=== PATIENT | male | born 1945 | race Caucasian/White ===

== ENCOUNTER → 2019-05-13 10:09 | Outpatient (CLI) | payer MEDICARE, BC | END | disposition home or self-care (01) | LOC: D.RAD 10:09 | PROVIDERS: ATTEND Family Medicine | DX: K59.00 Constipation, unspecified (principal) ==

== ENCOUNTER → 2019-06-30 08:32 | Outpatient (CLI) | payer MEDICARE, BC | END | disposition home or self-care (01) | LOC: D.RAD 08:32 | PROVIDERS: ATTEND Family Medicine | DX: R14.0 Abdominal distension (gaseous) (principal) ==

== ENCOUNTER 2021-02-28 14:06 | Observation (INO) | payer MEDICARE, BC ==
[~2021-02-28] VITALS: Ht 177.8 cm; Wt 75.2 kg
--- NOTE | ~2021-02-28 | OP ---
PATIENT NAME: CHRIS NORIEGA MEDICAL RECORD: [id number] :49 LOCATION:D. D.2123 ADMISSION DATE:02/28/21 SURGEON: CELI OLGUIN MD DATE OF OPERATION: 03/01/2021 PROCEDURE: Left heart catheterization, selective coronary angiography, right femoral artery approach. CATHETERS: A 5-Macedonian sheath, 5/4 left and right Argelia, 5/4 pig. The procedure was well tolerated. The patient was returned to the rose. Sheath removed. ExoSeal device was placed. FINDINGS: Left ventriculography in 30-degree MARTIN view normal wall motion and normal systolic function. CORONARY ANATOMY: LEFT MAIN: Left main free of disease. LAD: Free of disease in the diagonal system. CIRCUMFLEX: Codominant system, free of disease. RIGHT CORONARY ARTERY: Codominant system, free of disease. IMPRESSION: Normal left ventricular systolic function, normal coronary anatomy. TRANSINT:[id number] Voice Confirmation ID: [id number] DOCUMENT ID: [id number] CELI OLGUIN MD CC: [id number] DICTATION DATE: 03/01/21 1223 FARMER DIVERSIFIED CROPS: 03/01/21 221 DIS IN 03/01/21 [facility] [address] [id number]
--- NOTE | ~2021-02-28 | HEMODYNAMI ---
PATIENT:CHRIS NORIEGA MEDICAL RECORD: [id number] : 49 LOCATION:[address] [id number] ADMISSION DATE: 02/28/21 Generatedon:112:19 Patient name: CHRIS NORIEGA Patient #: [id number] SSN: : Date of study: 03/01/2021 Page: Of Hemodynamic Procedure Report Patient Data Patient Demographics Procedure consent was obtained First Name: CHRIS Gender: Male Last Name: HARI : 1945 [facility] Initial: ALEXIS Age: 75 year(s) Patient #: [id number] Race: Unknown Additional ID: [id number] Contact details Address: [address] [place] [address] State: [place] City: [place] Zip code: [address] Past Medical History Allergies Allergen Reaction Date Comments Reported Penicillins 03/01/2021 Admission Admission Data Admission Date: 02/28/2021 Admission Time: 14:18 Room #: [facility] Height (in.): 70 BSA: 1.93 (m2) Height (cm.): 177.8 BMI: 23.72 (kg/m2) Weight (lbs.): 165.35 Weight (kg.): 75 Current Diagnosis Diagnosis Description Stable angina Lab Results Lab Result Date: 03/01/2021 Lab Result Time: 0:00 Biochemistry Name Units Result Min Max BUN mg/dl 10 --(-*--)-- 7 18 Creatinine mg/dl 1 --(--*-)-- 0.6 1.3 CBC Name Units Result Min Max Hemoglobin g/dl 13 -*(----)-- 13.5 17.5 Procedure Procedure Types Cath Procedure Diagnostic Procedure [facility] w/Coronaries Procedure Description Procedure Date Procedure Date: 03/01/2021 Procedure Start Time: 12:06 Procedure End Time: 12:16 Procedure Staff Name Function Jl Vance MD Performing Physician Chris Stewart RT Monitor Natividad Almodovar RT Scrub James Hunter RN Nurse Procedure Data Cath Procedure Fluoroscopy Diagnostic fluoroscopy Total fluoroscopy Time: 1.6 time: 1.6 min min Diagnostic fluoroscopy Total fluoroscopy dose: 267 dose: 267 mGy mGy Contrast Material Contrast Material Type Amount (ml) Isovue 370 57 Entry Location Entry Primary Successful Side Size Upsize Upsize Entry Closure Succes sful Closure Location (Fr) 1 (Fr) 2 (Fr) Remarks Device Remarks Femoral Right 5 Fr Exoseal artery Estimated blood loss: 5 ml Diagnostic catheters Device Type Used For End Catheter Placement MULTIPACK JL 4.0 5Fr Left Coronary catheter Angiography MULTIPACK 3DRC 5Fr Right Coronary catheter Angiography DIAGNOSTIC JL 5 5Fr Left Coronary catheter ([id number]) Angiography MULTIPACK Pigtail 5 Fr LV Angiography catheter Procedure Complications No complications Procedure Medications Medication Administration Route Dosage 0.9% NaCl I.V. 100 ml/hr Oxygen etCO2 Nasal cannula 2 l/min Heparin Flush Bag added to field 2 bags (1000units/500ml NS) Lidocaine 2% added to field 20 Versed I.V. 1 mg Fentanyl I.V. 50 mcg Versed I.V. 1 mg Fentanyl I.V. 50 mcg Oxygen 15 l/min Hemodynamics Rest BSA: 1.93 (m2) HGB: 13 (g/dl) O2 Consumption: Estimated: 215.3 (ml/min) O2 Consu mption indexed: Estimated:111.55 (ml/min/m) Heart Rate: 60 (bpm) Gradients Valve Time Site Site Mean SEP/DFP Peak To Heart Use 1 2 (mmHg) (sec/min) Peak Rate (mmHg) (bpm) Aortic 12:13 LV AO 68 Snapshots Pre Cath Intra NCS Post Cath Vital Signs Time Heart Resp SPO2 etCO2 NIBP (mmHg) Rhythm Pain Sedation Rate (ipm) (%) (mmHg) Status Level (bpm) 12:01:25 62 11 100 38.9 158/88(100) NSR 0 (11) 10(A) , No pain 12:05:43 62 18 98 32.9 145/82(103) NSR 0 (11) 10(A) , No pain 12:10:02 61 14 88 0 134/81(111) NSR 0 (11) 9(A) , No pain 12:14:14 68 21 99 8.2 149/86(113) NSR 0 (11) 9(A) , No pain Medications Time Medication Route Dose Verified Delivered Reason Notes Eff ectiveness by by 11:48:30 0.9% NaCl I.V. 100 Jl James used for ml/hr St Gama Hunter RN procedure 11:48:39 Oxygen etCO2 2 Jl James used for Nasal l/min St Gama Hunter RN procedure cannula 11:48:47 Heparin Flush added 2 Jl Jl used for Bag to bags [facility] procedure (1000units/500ml field MD WALKER NS) 11:48:55 Lidocaine 2% added 20ml Jl Jl for local to vial [facility] anesthetic field MD WALKER 12:04:32 Versed I.V. 1 [address] for [facility] Gama Hunter RN sedation 12:04:40 Fentanyl I.V. 50 Jl James for mcg [facility] Gama Hunter RN sedation 12:07:36 Versed I.V. 1 [address] James for [facility] Gama Hunter RN sedation 12:07:39 Fentanyl I.V. 50 Jl James for mcg [facility] Gama Hunter RN sedation 12:12:13 Oxygen simple 15 Jl James used for mask l/min St Gama Hunter RN procedure Procedure Log Time Note 11:35:57 Informed consent obtained and on chart 11:36:19 Procedure Status Urgent Heart Cath (IP). 11:36:22 Chris Suit RT(R) sent for patient. Start room use. 11:42:13 Time tracking: Regular hours (M-F 7:00 - 5:00) 11:42:16 Plan of Care:Hemodynamics will remain stable., Cardiac rhythm will remain stable., Comfort level will be maintained., Respiratory function will remain adequate., Patient/ family verbilizes understanding of procedure., Procedure tolerated without complication., Recovers from procedure without complications.. 11:48:30 0.9% NaCl 100 ml/hr I.V. was administered by James Hunter RN; used for procedure; Verbal order read back and verified. 11:48:39 Oxygen 2 l/min etCO2 Nasal cannula was administered by James Hunter RN; used for procedure; Verbal order read back and verified. 11:48:47 Heparin Flush Bag (1000units/500ml NS) 2 bags added to field was administered by Jl Vance MD; used for procedure; Verbal order read back and verified. 11:48:55 Lidocaine 2% 20ml vial added to field was administered by Jl Vance MD; for local anesthetic; Verbal order read back and verified. 11:53:53 Patient received from PCU to CCL 1 Alert and oriented. Tansferred to table in Supine position. 11:53:55 Warm blankets applied, and aisha hugger turned on for patient comfort. 11:53:55 Correct patient and procedure confirmed by team. 11:53:56 ECG and BP/O2 sat monitors applied to patient. 12:00:13 Vital chart was started 12:00:17 Baseline sample Acquired. 12:00:18 Baseline sample Acquired. 12:00:21 Rhythm: sinus rhythm 12:00:22 Full Disclosure recording started 12:00:32 H&P Date Dictated: 03/01/2021 Within 30 days and on chart.. 12:00:33 Pre-procedure instructions explained to patient. 12:00:34 Pre-op teaching completed and patient verbalized understanding. 12:00:40 Family in waiting room. 12:00:44 Patient NPO since Midnight. 12:00:55 Patient allergic to Penicillins 12:02:10 Is the patient allergic to Iodine/contrast media? No. 12:02:16 Is patient on blood thinner?No 12:02:29 Patient diabetic? No. 12:02:33 Previous problem with sedation/anesthesia? No ? 12:02:35 Snore? Yes 12:02:36 Sleep apnea? Yes 12:02:38 Deviated septum? No 12:02:40 Opens mouth fully? Yes 12:02:42 Sticks out tongue? Yes 12:02:44 Airway obstruction? No ? 12:02:47 Dentures? No ? 12:02:52 Pre procedure: right dorsailis pedis pulse 1+ Palpable, but thready & weak; easily obliterated 12:02:55 Patient pain scale 0/10 ?. 12:03:03 IV patent on arrival in right hand with 0.9% NaCl at [facility] 12:04:02 Lab Result : BUN 10 mg/dl 12:04:02 Lab Result : Creatinine 1 mg/dl 12:04:02 Lab Result : Hemoglobin 13 g/dl 12:04:06 Lab results completed and on chart. 12:04:11 Right groin area was prepped with chlora-prep and draped in sterile fashion 12:04:12 Alarms reviewed by R. N. 12:04:12 Sharps counted by scrub and verified by R.N. 12:04:14 Physician arrived 12:04:14 --------ALL STOP TIME OUT------ 12:04:15 Final Timeout: patient, procedure, and site verified with staff and physician. All members of the team are in agreement. 12:04:17 Right groin site verified by team. 12:04:24 Fire Safety Assessment: A--An alcohol-based skin anteseptic being used preoperatively., B--The operative or invasive procedure is being performed above the xiphoid process or in the oropharynx., C--Open oxygen or nitrous oxide is being used., D--An ESU, laser, or fiber-optic light is being used., E--There are other possible contributors. 12:04:28 Physical assessment completed. ASA score P 2 - A patient with mild systemic disease as per Jl Vance MD. 12:04:32 Versed 1 mg I.V. was administered by James Hunter RN; for sedation; Verbal order read back and verified. 12:04:40 Fentanyl 50 mcg I.V. was administered by James Hunter RN; for sedation; Verbal order read back and verified. 12:04:54 2) 60-89 Mildly reduced kidney function, and other findings (as for stage 1) point to kidney disease. 12:05:13 Maximum allowable contrast dose (3.7 X eGFR X 0.75)216 ml. 12:05:18 Sedation plan: IV Moderate Sedation Medication:Versed, Fentanyl 12:05:25 Use device set Femoral Dx 12:05:28 ACIST Syringe (93165) opened to sterile field. 12:05:28 Bag Decanter (2002S) opened to sterile field. 12:05:29 Medline Cath Pack ([id number]) opened to sterile field. 12:05:33 ACIST Hand Control (90787) opened to sterile field. 12:05:34 ACIST Manifold (89978) opened to sterile field. 12:05:35 DIAGNOSTIC Multipack 5Fr catheter set ([id number]) opened to sterile field. 12:05:35 Tegaderm 4 x 4 (1626W) opened to sterile field. 12:05:38 SHEATH 5FR [place] (FZD459) opened to sterile field. 12:05:39 EMERALD Guide Wire (368-496) opened to sterile field. 12:05:45 Procedure started. 12:06:12 Local anesthetic to right femoral artery with Lidocaine 2% by Jl Vance MD.INITIAL ACCESS ONLY 12:06:22 A 5 Fr sheath was inserted into the Right Femoral artery 12:07:28 Zero performed for pressure channel P1 12:07:36 Versed 1 mg I.V. was administered by James Hunter RN; for sedation; Verbal order read back and verified. 12:07:39 Fentanyl 50 mcg I.V. was administered by James Hunter RN; for sedation; Verbal order read back and verified. 12:07:53 Patient Height : 70 inches 12:08:04 Patient Weight : 165.35 lbs 12:08:09 Current Diagnosis : Stable angina 12:08:32 A MULTIPACK JL 4.0 5Fr catheter was advanced over the wire and used for Left Coronary Angiography. 12:08:37 LCA angiography performed. 12:08:42 Catheter removed. 12:09:13 A MULTIPACK 3DRC 5Fr catheter was advanced over the wire and used for Right Coronary Angiography. 12:09:20 RCA angiography performed. 12:09:28 Catheter removed. 12:11:23 A DIAGNOSTIC JL 5 5Fr catheter ([id number]) was advanced over the wire and used for Left Coronary Angiography. 12:11:31 LCA angiography performed. 12:11:34 Catheter removed. 12:11:49 A MULTIPACK Pigtail 5 Fr catheter was advanced over the wire and used for LV Angiography. 12:11:55 LV gram done using MARTIN 12:11:56 LV hemodynamics recorded. 12:12:01 Injector settings: Ml/sec: 10, Volume: 20, 12:12:13 Oxygen 15 l/min simple mask was administered by James Hunter RN; used for procedure; Verbal order read back and verified. 12:13:36 EF : 55 % 12:13:59 EXOSEAL 5Fr (EX500) opened to sterile field. 12:14:02 Catheter removed. 12:14:21 Sheath removed intact; hemostasis achieved with Exoseal to the Right Femoral artery. 12:14:25 Procedure ended.(Physican Out) 12:15:02 Fluoroscopy time 01.60 minutes. 12:15:13 Flurop Dose total: 267 12:15:13 Fluoroscopy dose: 267 mGy 12:15:22 Dose Area Product 17005 mGy/cm. 12:15:33 Contrast amount:Isovue 370 57ml. 12:15:35 Sharps counted by scrub and verified by R.N. 12:15:38 Insertion/operative site no bleeding no hematoma. 12:15:41 Post-op/insertion site Right Femoral artery dressed using a 4 x 4 and Tegaderm. 12:15:44 Post right femoral artery:stable 12:15:46 Post Procedure Pulses reassessed and unchanged 12:15:49 Post procedure: right dorsailis pedis pulse 1+ Palpable, but thready & weak; easily obliterated. 12:15:51 Post procedure rhythm: sinus rhythm 12:16:13 Estimated blood loss: 5 ml 12:16:15 Post procedure instruction explained to patient.Patient verbalizes understanding. 12:16:19 Procedure and supply charges have been captured, reviewed, submitted and are correct. 12:16:40 Procedure Complication : No complications 12:16:42 Vital chart was stopped 12:16:[address] [facility] Findings: mild to moderate CAD (<70%) 12:16:48 Operative report dictated upon procedure completion. 12:16:49 See physician's report for complete and final results. 12:16:51 Report given to PCU. 12:16:54 Patient transfered to PCU with Stretcher. 12:16:56 Procedure ended. 12:16:56 Full Disclosure recording stopped 12:16:59 End room use (Document Last) 12:17:22 End room use (Document Last) 12:17:53 End room use (Document Last) Device Usage Item Name Manufacture Quantity Catalog Hospital Part Current Minimal L ot# / Number Charge Number Stock Stock Serial# Code ACIST Acist 1 41532 [id number] 179751 [id number] 20 Syringe Medical (61374) Systems Inc Bag Microtek 1 048269 69918 350825 5 Decanter Medical Inc. () Medline Medline 1 [id number] 939061 98159 442415 5 Cath Pack ([id number]) ACIST Hand Acist 1 51540 904782 155182 418482 5 Control Medical (24572) Systems Inc ACIST Acist 1 22658 906558 786296 426054 5 AGNITiO (06169) Systems Inc DIAGNOSTIC Cardinal 1 NA3795 432294 76322 181960 30 Multipack Health 5Fr catheter set (JW0209) Tegaderm 4 3M 1 1626W 241548 846225 915039 5 x 4 (1626W) SHEATH 5FR Terumo 1 KFS447 474664 007745 044347 5 [place] (KDC383) EMERALD Cardinal 1 502-455 695475 664649 204034 5 Guide Wire Health (502-455) MULTIPACK Cardinal 1 625209 5 JL 4.0 5Fr Health catheter MULTIPACK Cardinal 1 600310 5 3DRC 5Fr Health catheter DIAGNOSTIC Cardinal 1 [id number] 318359 553836 788816 5 JL 5 5Fr Health catheter ([id number]) MULTIPACK Cardinal 1 993673 5 Pigtail 5 Health Fr catheter EXOSEAL 5Fr Cardinal 1 EX500 475637 392481 820049 10 (EX500) Health Signature Audit [place] Stage Time Signature Unsigned Intra-Procedure 03/01/2021 Chris Stewart RT(R) 12:17:22 PM Intra-Procedure 03/01/2021 James Hunter RN 12:17:53 PM Intra-Procedure 03/01/2021 Jl Langley 12:19:32 PM Gama WALKER [address] [address]
--- NOTE | ~2021-02-28 | CN ---
PATIENT NAME:CHRIS NORIEGA MEDICAL RECORD: [id number] : 49 LOCATION:. D.2123 ADMIT DATE: 02/28/21 ACCOUNT: [id number] CONSULTING PHYSICIAN: CELI OLGUIN MD REFERRING PHYSICIAN: SHAD ROJAS MD DATE OF CONSULTATION: 03/01/2021 HISTORY OF PRESENT ILLNESS: A 75-year-old gentleman with known history of coronary artery disease, has a history of hypertension, hyperlipidemia, presented to Dr. Rojas's office with acute coronary syndrome, chest tightness and pressure with exertion, had a rest symptomatology on day of admission, also noted to have abnormal EKG with nonspecific ST-T changes. We were asked to see him concerning his cardiovascular status. PAST MEDICAL HISTORY: Includes: 1. History of hypertension. 2. Hyperlipidemia. 3. Hypothyroidism. 4. Osteoarthritis. SOCIAL HISTORY: Nonsmoker, nondrinker. He takes care of all of his ADLs. Plays golf on a regular basis. No significant exercise program. ALLERGIES: NITROGLYCERIN; THAT IS FROM THIS ADMISSION. MEDICATIONS: Include losartan 25 mg p.o. q. day, Celebrex 200 mg p.o. q. day, omeprazole 20 q. day, Linzess 72 mcg q. day, Synthroid 75 mcg q. day. REVIEW OF SYSTEMS: The patient reports easy bruising but reports no swollen glands. The patient reports no fever, no night sweats, no significant weight gain, no significant weight loss. No significant exercise tolerance. The patient reports no dry eyes, no irritation, no vision change. Patient reports no difficulty hearing and no ear pain. Patient reports no frequent nose bleeds or nose and sinus problems. Patient reports on arm pain on exertion. No shortness of breath while lying down. No history of heart murmur. Patient reports no cough, no wheezing or coughing up blood. Patient reports no abdominal pain, no vomiting. Normal appetite. No diarrhea and not vomiting blood. No nausea and no constipation. Patient reports no incontinence. No difficulty urinating. No hematuria. No increased frequency. Patient reports no muscle aches. No weakness, no arthralgias, no back pain. No swelling of the extremities. Patient reports no abnormal mole, no jaundice, no rashes. Reports no loss of consciousness. No weakness and no numbness. No seizures, dizziness, or headaches. The patient reports no depression, no sleep disturbance, feeling safe in a relationship and no alcohol abuse. Patient reports on fatigue. Reports no runny nose or sinus pressure. No itching, no hives, and no frequent sneezing. PHYSICAL EXAMINATION: GENERAL: No acute distress, appears stated age, alert and oriented times 3. VITAL SIGNS: 137/80, pulse 65 and regular. HEENT: Normocephalic, atraumatic. NECK: No bruits noted. HEART: Regular. LUNGS: Good air excursion. ABDOMEN: Soft and nontender. CONSULT REPORT [id number] CHRIS NORIEGA EXTREMITIES: Pulses 2+. No edema. IMPRESSION: Acute coronary syndrome with rest pain, multiple risk factors including hypertension, hyperlipidemia, family history. PLAN: For angiography and intervention based on the above. TRANSINT:[id number] Voice Confirmation ID: [id number] DOCUMENT ID: [id number] CELI OLGUIN MD CC: [id number] DICTATION DATE: 03/01/21 122 LAY OUT AND DETAIL DRAFTER: 03/01/212212 DIS IN 03/01/21 [place] [id number] [place] [id number]
--- NOTE | 2021-02-28 14:00 | NUR ---
ARRIVE TO ROOM VIA WHEELCHAIR FROM 'S OFFICE. ALERT AND ORIENTED X4. AMBULATES TO BED. GAIT STEADY. SINUS RHYTHM 61 WITH BBB. EKG COMPLETE ON CHART. REFUSE SCDs. RECIEVES LOVENOX INJ. CONTINUE SAFETY PRECAUTIONS AND ADMISSION PROCESS.
[2021-02-28] MEDS ORDERED: LINZESS72 MCG PO (14:52)
[2021-02-28] MEDS ORDERED: LEVOTHYROXINE75 MCG PO (14:52)
[2021-02-28] MEDS ORDERED: COZAAR25 MG PO (14:53)
[2021-02-28] MEDS ORDERED: CELEBREX200 MG PO (14:54)
[2021-02-28] MEDS ORDERED: OMEPRAZOLE20 M1 PO (15:04)
[2021-02-28 15:17] VITALS: BP 150/85; Ht 177.8 cm; Wt 75.2 kg
[2021-02-28 15:47] LABS: BASOPHILS 0.2 % (0-2); EOSINOPHILS 2.2 % (0-7); HEMATOCRIT 41.3 % (42.0-54.0); HEMOGLOBIN 13.5 g/dL (13.5-17.5); LYMPHOCYTES 20.3 % (15-50); MCH 29.7 pg (26.0-34.0); MCHC 32.6 g/dL (31.0-37.0); MCV 90.9 fL (80.0-100.0); MEAN PLATELET VOLUME 7.5 fL (7.4-10.4); MONOCYTES 6.9 % (2-11); NEUTROPHILS 70.4 % (40-80); PLATELET COUNT 232 10x3/uL (130-400); RBC 4.54 10x6/uL (4.20-6.10); RDW 14.3 % (11.5-14.5); WBC 7.7 10x3/uL (4.8-10.8)
[2021-02-28 16:15] LABS: ALBUMIN 3.7 g/dL (3.4-5.0); ALKALINE PHOSPHATASE 45 U/L (30-120); ALT (SGPT) 28 U/L (10-68); BILIRUBIN - TOTAL 0.64 mg/dL (0.2-1.3); CALC OSMOLALITY 278 mosm/kg (275-300); CALCIUM 9.3 mg/dL (8.5-10.1); CARBON DIOXIDE 28.9 mmol/L (21.0-32.0); CHLORIDE - SERUM 105 mmol/L (98-107); GLUCOSE 87 mg/dL (74-106); POTASSIUM - SERUM 4.5 mmol/L (3.5-5.1); PROTEIN - SERUM 6.8 g/dL (6.4-8.2); SODIUM 141 mmol/L (136-145); THYROID STIMULATING HORMONE 1.96 uIU/mL (0.36-3.74); UREA NITROGEN 10 mg/dL (7-18); eGFR NON AFRICAN AMERICAN 78 mL/min (90-120)
[2021-02-28 16:24] LABS: TROPONIN-I < 0.017 ng/mL (0.000-0.060)
--- NOTE | 2021-02-28 18:26 | NUR ---
IV SITED TO LT WRIST 22G. NITRO ADMINISTERED ORDERED. REPORTS FEELING DIZZY. COLOR BECOMES PALE, EYES GLAZED OVER. BLANK STAR. HR DROP TO 28. INITIATE [place] BED POSITION. COLOR RETURNS TO NORMAL. HR RETURNS TO SINUS RHYTHM 64. NOTIFY OF REACTION. DANISHA ADDED TO ALLERGY LIST.
[2021-02-28 21:24] VITALS: BP 110/66
[2021-02-28 23:59] VITALS: BP 111/70
[2021-03-01 05:24] VITALS: BP 114/76
--- NOTE | 2021-03-01 06:12 | NUR ---
ADMINISTERED [address] KNOWLES. NO NEW ORDERS RECEIVED AT THIS TIME.
[2021-03-01 08:00] VITALS: BP 138/79
--- NOTE | 2021-03-01 08:19 | HP ---
PATIENT: CHRIS NORIEGA MEDICAL RECORD: [id number] ACCOUNT: [id number] LOCATION:[address] : [birth year] ADMISSION DATE: 02/28/21 PCP: SHAD KNOWLES MD HISTORY AND PHYSICAL EXAMINATION CHIEF COMPLAINT: Chest pain. 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 He states he woke up about a week ago and had "real sharp" pains across his chest that resolved in a day or so, but for the last couple of days, he has had a dull pain across his chest. He worked out in his yard a few days ago and had some diaphoresis and pain that resolved. He was able to play golf yesterday without weakness or diaphoresis, but still has a dull pain across his chest. It did not radiate to the neck. It does not radiate down either arm. Pain is not reproducible. He has no nausea. In my office, an EKG was done that did not show anything acute. Chest x-ray showed normal heart size, no obvious abnormalities anywhere. With his ongoing chest pain, I felt it best to place him in observation for serial cardiac enzymes and cardiology consult. Of note, he did have cardiology evaluation several years ago that was negative. PAST MEDICAL AND SURGICAL HISTORY: Hypertension, hyperlipidemia, osteoarthritis, and hypothyroidism. PAST SURGICAL HISTORY: Tonsillectomy and joint replacement. ALLERGIES: None. HABITS: Former smoker. Occasional alcohol. No illicit drug use. HOME MEDICATIONS: Linzess 72 mcg once a day, losartan 25 mg once a day, levothyroxine 75 mcg once a day, and omeprazole 20 mg once a day. 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 FAMILY HISTORY: Father passed at 58. He had coronary artery disease, but also colon cancer. Mother at 63, she had diabetes and a brother is living with diabetes. REVIEW OF SYSTEMS: GENERAL: No major weight changes. HEENT: No particular sinus or allergy problems. RESPIRATORY: No history of emphysema, asthma, or any lung disease. CARDIAC: No known coronary artery disease. As mentioned, he had a cardiology workup several years ago that was unremarkable. GASTROINTESTINAL: He has occasional heartburn. GENITOURINARY: No significant problems there. MUSCULOSKELETAL: He has a history of osteoarthritis. NEUROLOGIC: No migraines. No seizures. PSYCHIATRIC: Denies depression or melancholia. PHYSICAL EXAMINATION: VITAL SIGNS: Temperature 97.0, pulse 92, respirations 16, blood pressure 155/88, O2 sat 96%. GENERAL: He is awake, alert. He does not appear in acute distress. HISTORY AND PHYSICAL [id number] CHRIS NORIEGA SKIN: Warm and dry. HEENT: Grossly within normal limits. NECK: Supple. No JVD or bruit. HEART: Regular rate and rhythm without murmur. LUNGS: Clear. ABDOMEN: Soft, flat, and nontender. There is no increased tenderness to palpation across his chest, but he continues to have a dull pain. EXTREMITIES: No edema. NEUROLOGIC: Intact. LABORATORY DATA: Chest x-ray again was done in my office showing normal heart size, no bony abnormalities, no suspicious mass, no infiltrate. EKG showed normal sinus rhythm. No significant abnormalities. CBC with a white count of 7700, hemoglobin 13.5, hematocrit 41.3, platelets 232,000. Normal differential. Sodium 141, potassium 4.5, chloride 105, CO2 of 28.9, BUN 10, creatinine 1.0, glucose 87, and calcium 9.3. Liver enzymes were all normal. Troponin #l was less than 0.017. TSH 1.96. ASSESSMENT: 1. Chest pain. 2. History of hypertension. 3. History of hyperlipidemia. 4. Former smoker. 5. Father had coronary artery disease. PLAN: We will admit, place on telemetry. Serial cardiac enzymes. We will ask cardiology to see him. Other tests or procedures as warranted. TRANSINT:[id number] Voice Confirmation ID: [id number] DOCUMENT ID: [id number] SHAD KNOWLES MD at 0819 CC: [id number] DICTATION DATE: 02/28/212102 SUBEDITOR: 02/28/212119 ADM IN [id number] [place] [address]
[2021-03-01 11:50] VITALS: BP 137/80
--- NOTE | 2021-03-01 15:51 | NUR ---
D/C LEFT WRIST IV, TIP INTACT. DISCHARGE INSTRUCTIONS GIVEN VERBALLY AND HANDOUTS PROVIDED. AT BEDSIDE. TAKEN DOWN TO ED ENTRANCE VIA WHEELCHAIR.
== END 2021-03-01 16:20 | disposition home or self-care (01) ==
LOC: D.M2 14:06 → OBSVTIME 14:18 → D.M2 14:18
PROVIDERS: ADMIT Family Medicine; ATTEND Family Medicine
DX: I25.10 Atherosclerotic heart disease of native coronary artery without angina pectoris (principal); I10 Essential (primary) hypertension; E78.5 Hyperlipidemia, unspecified; E03.9 Hypothyroidism, unspecified; M19.90 Unspecified osteoarthritis, unspecified site; I24.9 Acute ischemic heart disease, unspecified; R07.9 Chest pain, unspecified